=== PATIENT | male | born 1950 | race Hispanic/Latino ===

== ENCOUNTER → 2022-07-28 | Outpatient (CLI) | payer OTHER ==
[~2022-07-28] MED LIST: AEC81 PO; CHOL100040 PO; FAMO20TA8 PO; FOLI20CA PO; FURO40TA5 PO; GLIP10TA9 PO; INSU100V12 SQ; OMEG-108 PO; VITA150T PO; lipitor PO; losartan PO; norvasc PO; vitamin b12 PO
== END | disposition home or self-care (01) ==
LOC: RAH 08:37
PROVIDERS: ATTEND Internal Medicine
DX: R39.11 Hesitancy of micturition (principal)
CPT/HCPCS: 76857

== ENCOUNTER → 2023-04-20 | Outpatient (CLI) | payer OTHER | END | disposition home or self-care (01) | LOC: RAH 07:46 | PROVIDERS: ATTEND Student in an Organized Health Care Education/Training Program | DX: I70.213 Atherosclerosis of native arteries of extremities with intermittent claudication, bilateral legs (principal); I25.10 Atherosclerotic heart disease of native coronary artery without angina pectoris | CPT/HCPCS: 76775; 93925 ==